=== PATIENT | male | born 1970 | race Two or more races ===

== ENCOUNTER 2017-09-07 13:35 | Emergency (ER) | payer OTHER ==
[2017-09-07 13:45] VITALS: BP 114/62; PULSE 70; TEMP 98.2; BMI 29.0
--- NOTE | 2017-09-07 14:30 | PDOC ---
Suture Removal/Wound Check HPI - History of Present Illness Chief Complaint: Abscess Boil Stated Complaint: REVISIT Time Seen by Provider: 09/07/17 14:01 History Source: Yes: Patient, Old Records Exam Limitations: Yes: No Limitations Treated at: [facility] Date of Last ED visit: 09/05/17 - Previous ED Treatment Antibiotics Prescribed: Yes Past History - Past Medical History Allergies/Adverse Reactions: Allergies Allergy/AdvReac Type Severity Reaction Status Date / Time No Known Allergies Allergy Verified 09/07/17 13:42 Home Medications: Ambulatory Orders Cephalexin [Keflex] 500 mg PO BID 09/05/17 Ibuprofen [Motrin -] 600 mg PO TID 09/05/17 Sulfamethoxazole/Trimethoprim [Bactrim Ds -] 1 tab PO BID 09/05/17 COPD: No DVT: No - Suicide/Smoking/Psychosocial Hx Smoking History: Never smoked Information on smoking cessation initiated: No Hx Alcohol Use: No Drug/Substance Use Hx: No Substance Use Type: None *Review of Systems - Review of Systems Able to Perform ROS?: Yes Constitutional: No: Symptoms Reported HEENTM: No: Symptoms Reported Respiratory: No: Symptoms reported Cardiac (ROS): No: Symptoms Reported ABD/GI: No: Symptoms Reported : No: Symptoms Reported Musculoskeletal: No: Symptoms Reported Integumentary: Yes: See HPI Neurological: No: Symptoms reported Endocrine: No: Symptoms Reported Hematologic/Lymphatic: No: Symptoms Reported *Physical Exam - Vital Signs Last Vital Signs Temp Pulse Resp BP Pulse Ox 98.2 F 70 17 114/62 96 09/07/17 13:42 09/07/17 13:42 09/07/17 13:42 09/07/17 13:42 09/07/17 13:42 - Physical Exam General Appearance: Yes: Appropriately Dressed. No: Apparent Distress Integumentary: positive: Other (8 cm x 10 cm ovoid area of induration noted to the right posterior thigh. Purulent drainage noted on dressing. No fluctuance present.) Medical Decision Making - Medical Decision Making 09/07/17 14:36 A/P: 46-year-old male without significant past medical history for wound check of abscess 8 cm x 10 cm ovoid area of induration present to the right posterior thigh. No fluctuance present Previous culture reveals MRSA. Patient is currently taking Bactrim and Keflex. Purulent drainage noted on dressing. Unable to express pus Instructed patient stop taking Keflex. Patient is to continue taking Bactrim as previously prescribed. Patient encouraged to perform warm soaks as previously recommended. Patient instructed to return to emergency department for reevaluation of wound in 2 days. Patient verbalized understanding all discharge instructions and was satisfied with care provided. *DC/Admit/Observation/Transfer Diagnosis at time of Disposition: Abscess - Discharge Dispostion Disposition: HOME Condition at time of disposition: Stable Decision to Admit order: No - Referrals Referrals: Adriano Mujica [Primary Care Provider] - - Patient Instructions Additional Instructions: Return to emergency Department in 2 days for reevaluation of her wound. Stop taking cephalexin. Continue taking Bactrim as previously prescribed. Take Motrin or Tylenol as needed for fevers and/or pain. Return to emergency department immediately should begin to experience fevers, worsening pain, streaking from the wound or any other concerns. - Post Discharge Activity Forms/Work/School Notes: Back to Work
== END 2017-09-07 14:40 | disposition home or self-care (01) ==
LOC: JERFT 13:35
DX: L02.415 Cutaneous abscess of right lower limb (principal)
CPT/HCPCS: 99281-25

== ENCOUNTER 2017-09-09 14:15 | Emergency (ER) | payer OTHER ==
[2017-09-09 14:40] VITALS: BP 118/37; PULSE 80; TEMP 98.7; BMI 31.4
[2017-09-09] MEDS ORDERED: LIDOCAINE 1%/EPI 1:100000 (20 ML MULTI DOSE VIAL) ONE (14:46)
--- NOTE | 2017-09-09 14:54 | PDOC ---
Suture Removal/Wound Check HPI - History of Present Illness Chief Complaint: Revisit,Wound Recheck Stated Complaint: REVISIT, WOUND CHECK Time Seen by Provider: 09/09/17 14:39 History Source: Yes: Patient Exam Limitations: Yes: No Limitations [facility] Date of Last ED visit: 09/05/17 Past History - Past Medical History Allergies/Adverse Reactions: Allergies Allergy/AdvReac Type Severity Reaction Status Date / Time No Known Allergies Allergy Verified 09/09/17 14:35 Home Medications: Ambulatory Orders Cephalexin [Keflex] 500 mg PO BID 09/05/17 Ibuprofen [Motrin -] 600 mg PO TID 09/05/17 Sulfamethoxazole/Trimethoprim [Bactrim Ds -] 1 tab PO BID 09/05/17 COPD: No DVT: No - Suicide/Smoking/Psychosocial Hx Smoking History: Never smoked Have you smoked in the past 12 months: No Information on smoking cessation initiated: No Hx Alcohol Use: No Drug/Substance Use Hx: No Substance Use Type: None *Physical Exam - Vital Signs Last Vital Signs Temp Pulse Resp BP Pulse Ox 98.7 F 80 20 118/37 97 09/09/17 14:35 09/09/17 14:35 09/09/17 14:35 09/09/17 14:35 09/09/17 14:35 Procedures - Incision and Drainage I&D Site: Right: Leg Anesthesia: 1% Lidocaine w/ Epi Volume(ml): 4 Blade Size: 11 Attempts: 1 Medical Decision Making - Medical Decision Making Pt seen here on 09/05 and 09/07 for wound to posterior right thigh. patient has been on bactrim and keflex but cultures revealed MRSA so keflex was stopped. Minimal purulent discharge expressed. Wound is oval in shape, approximately 2.5cm in length that is minimal fluctuant. 5cm area of surrounding erythema. I& Ded wound without any purulent drainage expressed. Cleaned and loosely covered with gauze. Instructed patient to keep area dry. Instructed him to complete course of bactrim and return to the ER in 3 days for wound check. THe patient verbalizes understanding of all instructions, has no further questions and is awaiting discharge. *DC/Admit/Observation/Transfer Diagnosis at time of Disposition: Abscess - Discharge Dispostion Disposition: HOME Condition at time of disposition: Good - Referrals - Patient Instructions Printed Discharge Instructions: DI for Wound Infection Additional Instructions: Discharge Instructions: -Continue taking the antibiotics until completed. -Keep wound clean, dry and covered -Return to the ER in 3 days, 09/12, for wound check Instrucciones de descarga: -Contine tomando los antibiticos hasta que se complete. -Mantenga la herida limpia, seca y tapada -Volver a la arvind de emergencias en 3 bose, 09/12, para el control de heridas Print Language: [email or web address] - Post Discharge Activity Forms/Work/School Notes: Back to Work
== END 2017-09-09 15:05 | disposition home or self-care (01) ==
LOC: JERFT 14:15 → JER 14:15 → JERFT 15:05
PROC: 0J9L0ZZ Drainage of Right Upper Leg Subcutaneous Tissue and Fascia, Open Approach (ICD-10-PCS; principal; 2017-09-09)
DX: L02.415 Cutaneous abscess of right lower limb (principal)
CPT/HCPCS: 99281-25

== ENCOUNTER 2019-03-19 10:19 | Emergency (ER) | payer OTHER ==
[2019-03-19 10:26] VITALS: BP 106/54; PULSE 80; TEMP 98.2; BMI 30.7
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
== END 2019-03-19 11:55 | disposition home or self-care (01) ==
LOC: JERFT 10:19
DX: M54.2 Cervicalgia (principal); V43.52XA Car driver injured in collision with other type car in traffic accident, initial encounter; Y93.89 Activity, other specified; Y92.410 Unspecified street and highway as the place of occurrence of the external cause
CPT/HCPCS: 99282-25